=== PATIENT | male | born 1940 | race Caucasian/White ===

== ENCOUNTER 2019-05-17 01:19 | Emergency (ER) | payer MEDICARE, OTHER ==
[~2019-05-17] VITALS: Ht 185 cm; Wt 100.0 kg
[2019-05-17] MEDS ORDERED: LACTATED RINGERS 1,000 ML IV ONE (01:27)
[2019-05-17] MEDS ORDERED: SCOPOLAMINE 1.5 MG (TRANSDERM-SCOP) PATCH TD ONE (01:30)
[2019-05-17] MEDS ORDERED: ONDANSETRON 4 MG/2 ML (SDV) Z0FRAN IVP ONE (01:30)
--- NOTE | 2019-05-17 01:34 | ED General ---
General Chief Complaint: General Problems/Pain Stated Complaint: N/V,DIZZINESS Nursing Triage Note: TO ED ROOM 7 [facility]. STATES HE WAS MOVING HIS CAR EARLIER TONIGHT AND WHEN HE WAS DONE HE VOMITTED AND FELT DIZZY, WEAK, SOA. DENIES CP. STATES THIS HAPPENED A COUPLE OF DAYS AGO WELL. HAS NOT SEEN PCP. Nursing Sepsis Screen: No Definite Risk Source of Information: Patient, EMS History of Present Illness Date Seen by Provider: May 17, 2019 Time Seen by Provider: 01:20 Initial Comments PT ARRIVES VIA EMS FROM HOME, WITH PT C/O SUDDEN ONSET OF NAUSEA/VOMITING AND DIZZINESS AROUND 2300 TONIGHT STATES HE WAS DRIVING/MOVING HIS CAR AND SYMPTOMS BEGAN SHORTLY AFTER THAT HAS VOMITED X 4-5 TIMES NO DIARRHEA NO ABDOMINAL PAIN NO HEADACHE NO VISION CHANGES NO FEVER/SWEATS/CHILLS NO COUGH/CONGESTION OR RECENT ILLNESS NO CHEST PAIN HAS BEEN A LITTLE SHORT OF BREATH WITH THESE SYMPTOMS C/O GENERALIZED WEAKNESS NO PARESTHESIAS OR MOTOR DEFICITS NO SYNCOPE NOTHING WORSENS OR IMPROVES IT. CAN MOVE HEAD WITHOUT ANY PROBLEMS STATES HE IS NOT DIZZY NOW, AND NOT SHORT OF BREATH STATES HE FEELS FINE NOW, AND ALL SYMPTOMS HAVE RESOLVED PT STATES HE HAD THE EXACT SAME SYMPTOMS "2-3 DAYS AGO"--"CAME ON SUDDENLY AND LASTED " A COUPLE OF DAYS" PER PT DID NOT SEEK CARE STATES HE LOST HEARING IN HIS RIGHT EAR FOR A SHORT PERIOD OF TIME, WHEN THAT OCCURRED A COUPLE OF DAYS AGO, BUT HEARING IS FINE NOW AND HAS BEEN FINE SINCE THEN STATES HE FELT FINE ALL DAY TODAY, UNTIL 2300 NO HISTORY OF SIMILAR PT STATES HE HAS HAD AT LEAST 6 BEERS TONIGHT STATES HE DRINKS "EVERY 4 OR 5 DAYS" STATES HE "DOESN'T HAVE ANY MEDICAL PROBLEMS" BUT STATES HE "NEVER GOES TO THE DR" PCP: DR. CORREA--HAS NOT SEEN IN A LONG TIME Allergies and Home Medications Allergies Coded Allergies: No Known Drug Allergies (Unverified , 05/17/19) Patient Home Medication List Home Medication List Reviewed: Yes Review of Systems Review of Systems Constitutional: see HPI; No chills, No diaphoresis; dizziness; No fever, No malaise; weakness EENTM: no symptoms reported; No ear pain, No blurred vision, No nose congestion, No throat pain Respiratory: see HPI; No cough, No orthopnea; short of breath; No wheezing Cardiovascular: no symptoms reported; No chest pain, No edema, No palpitations, No syncope Gastrointestinal: see HPI; No abdominal pain, No diarrhea; nausea, vomiting Genitourinary: no symptoms reported Musculoskeletal: no symptoms reported Skin: no symptoms reported Psychiatric/Neurological: No Symptoms Reported; Denies Headache, Denies Numbness, Denies Paresthesia, Denies Seizure, Denies Tingling, Denies Tremors Hematologic/Lymphatic: No Symptoms Reported Immunological/Allergic: no symptoms reported Past Rsyatty-Faeyzx-Movxfe Hx Patient Social History Alcohol Use: Regular Use (AT LEAST A SIX PACK A COUPLE OF TIMES A WEEK, PER PT ON 05/17/19) Recreational Drug Use: No Smoking Status: Former Smoker (> 2 PPD, QUIT 1987) Type Used: Cigarettes Recent Foreign Travel: No Contact w/Someone Who Travel: No Recent Infectious Disease Expo: No Past Medical History Surgeries: Yes (FACIAL SURGERY; LEFT ANKLE FX/ORIF) Orthopedic Respiratory: No Cardiac: No Neurological: No Genitourinary: No Gastrointestinal: No Musculoskeletal: Yes (LEFT ANKLE FX/ORIF) Endocrine: No HEENT: Yes (FACIAL FRACTURES/REPAIR) Cancer: No Psychosocial: No Integumentary: No Blood Disorders: No Physical Exam Vital Signs Vital Signs - First Documented 05/17/19 05/17/19 01:20 03:00 Pulse 68 Resp 18 B/P (MAP) 125/82 (96) Pulse Ox 96 O2 Delivery Room Air Capillary Refill : Less Than 3 Seconds Height, Weight, BMI Height: '" Weight: lbs. oz. kg; 29.00 BMI Method: General Appearance: No Apparent Distress, WD/WN, Other (SMILING, TALKATIVE, DOES NOT APPEAR TO BE IN ANY DISCOMFORT OR DISTRESS, MOVES WITHOUT DIFFICULTY. + ODOR OF ETOH) HEENT: PERRL/EOMI, Normal ENT Inspection, Pharynx Normal, Other (TM'S OBSCURED BY CERUMEN IMPACTION BILATERALLY) Neck: Full Range of Motion, Normal Inspection, Non Tender, Supple; No Carotid Bruit, No JVD Respiratory: Normal Breath Sounds, No Accessory Muscle Use, No Respiratory Distress Cardiovascular: No Edema, No JVD, No Murmur, Normal Peripheral Pulses, Other (INTERMITTENT BIGEMINY, FREQUENT PVC'S ) Gastrointestinal: Normal Bowel Sounds, No Organomegaly, No Pulsatile Mass, Non Tender, Soft Back: No CVA Tenderness Extremity: Normal Capillary Refill, Normal Inspection, Normal Range of Motion, Non Tender, No Calf Tenderness, No Pedal Edema Neurologic/Psychiatric: Alert, Oriented x3, No Motor/Sensory Deficits, Normal Mood/Affect, 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 II-XII Norm as Tested; No Aphasia Skin: Normal Color, Warm/Dry Progress/Results/Core Measures Suspected Sepsis Recent Fever Within 48 Hours: No Infection Criteria Present: Suspected New Infection New/Unexplained Altered Menta: No Sepsis Screen: No Definite Risk SIRS Temperature: Pulse: 68 Respiratory Rate: 18 Laboratory Tests 05/17/19 01:28: White Blood Count 8.7 Blood Pressure 125 /82 Mean: 96 Laboratory Tests 05/17/19 01:28: Creatinine 1.09, INR Comment 1.0, Platelet Count 218, Total Bilirubin 0.5 Results/Orders Lab Results Laboratory Tests Test 05/17/19 01:28 05/17/19 02:17 Range/Units White Blood Count 8.7 4.3-11.0 10^3/uL Red Blood Count 4.57 4.35-5.85 10^6/uL Hemoglobin 13.9 13.3-17.7 G/DL Hematocrit 41 40-54 % Mean Corpuscular Volume 89 80-99 FL Mean Corpuscular Hemoglobin 30 25-34 PG Mean Corpuscular Hemoglobin Concent 34 32-36 G/DL Red Cell Distribution Width 12.8 10.0-14.5 % Platelet Count 218 130-400 10^3/uL Mean Platelet Volume 9.3 7.4-10.4 FL Neutrophils (%) (Auto) 74 42-75 % Lymphocytes (%) (Auto) 15 12-44 % Monocytes (%) (Auto) 11 0-12 % Eosinophils (%) (Auto) 0 0-10 % Basophils (%) (Auto) 0 0-10 % Neutrophils # (Auto) 6.5 1.8-7.8 X 10^3 Lymphocytes # (Auto) 1.3 1.0-4.0 X 10^3 Monocytes # (Auto) 0.9 0.0-1.0 X 10^3 Eosinophils # (Auto) 0.0 0.0-0.3 10^3/uL Basophils # (Auto) 0.0 0.0-0.1 10^3/uL Prothrombin Time 13.0 12.2-14.7 SEC INR Comment 1.0 0.8-1.4 Activated Partial Thromboplast Time 28 24-35 SEC Sodium Level 134 L 135-145 MMOL/L Potassium Level 3.9 3.6-5.0 MMOL/L Chloride Level 103 98-107 MMOL/L Carbon Dioxide Level 17 L 21-32 MMOL/L Anion Gap 14 5-14 MMOL/L Blood Urea Nitrogen 12 7-18 MG/DL Creatinine 1.09 0.60-1.30 MG/DL Estimat Glomerular Filtration Rate > 60 BUN/Creatinine Ratio 11 Glucose Level 113 H 70-105 MG/DL Calcium Level 8.3 L 8.5-10.1 MG/DL Corrected Calcium 8.5 8.5-10.1 MG/DL Magnesium Level 1.8 1.6-2.4 MG/DL Total Bilirubin 0.5 0.1-1.0 MG/DL Aspartate Amino Transf (AST/SGOT) 22 5-34 U/L Alanine Aminotransferase (ALT/SGPT) 19 0-55 U/L Alkaline Phosphatase 45 40-136 U/L Total Creatine Kinase 65 30-200 U/L Creatine Kinase MB 1.3 <6.6 NG/ML Myoglobin 53.4 10.0-92.0 NG/ML Troponin I < 0.028 <0.028 NG/ML B-Type Natriuretic Peptide 11.2 <100.0 PG/ML Total Protein 6.6 6.4-8.2 GM/DL Albumin 3.8 3.2-4.5 GM/DL Amylase Level 47 25-125 U/L Lipase 26 8-78 U/L TSH Turner Testing 0.74 0.35-4.94 UIU/ML Serum Alcohol 89 H <10 MG/DL Urine Color YELLOW Urine Clarity CLEAR Urine pH 6.5 5-9 Urine Specific [place] 1.015 L 1.016-1.022 Urine Protein NEGATIVE NEGATIVE Urine Glucose (UA) NEGATIVE NEGATIVE Urine Ketones TRACE H NEGATIVE Urine Nitrite NEGATIVE NEGATIVE Urine Bilirubin NEGATIVE NEGATIVE Urine Urobilinogen 0.2 < = 1.0 MG/DL Urine Leukocyte Esterase NEGATIVE NEGATIVE Urine RBC (Auto) NEGATIVE NEGATIVE Urine RBC NONE /HPF Urine WBC NONE /HPF Urine Squamous Epithelial Cells RARE /HPF Urine Crystals NONE /LPF Urine Bacteria NEGATIVE /HPF Urine Casts NONE /LPF Urine Mucus NEGATIVE /LPF Urine Culture Indicated NO Urine Opiates Screen NEGATIVE NEGATIVE Urine Oxycodone Screen NEGATIVE NEGATIVE Urine Methadone Screen NEGATIVE NEGATIVE Urine Propoxyphene Screen NEGATIVE NEGATIVE Urine Barbiturates Screen NEGATIVE NEGATIVE Ur Tricyclic Antidepressants Screen NEGATIVE NEGATIVE Urine Phencyclidine Screen NEGATIVE NEGATIVE Urine Amphetamines Screen NEGATIVE NEGATIVE Urine Methamphetamines Screen NEGATIVE NEGATIVE Urine Benzodiazepines Screen NEGATIVE NEGATIVE Urine Cocaine Screen NEGATIVE NEGATIVE Urine Cannabinoids Screen NEGATIVE NEGATIVE Micro Results Microbiology 05/17/19 Influenza Types A,B Antigen (DOREEN) - Final, Complete My Orders Orders - LUANN WISE DO Ed Iv/Invasive Line Start (05/17/19 01:20) Ekg Tracing (05/17/19 01:20) O2 (05/17/19 01:20) Monitor-Rhythm Ecg Trace Only (05/17/19:20) Amylase (05/17/19:20) Cbc With Automated Diff (05/17/19:20) Comprehensive Metabolic Panel (05/17/19 01:20) Lipase (05/17/19 01:20) Magnesium (05/17/19 01:20) Protime With Inr (05/17/19:20) Partial Thromboplastin Time (05/17/19 01:20) Ua Culture If Indicated (05/17/19 01:20) Blood Culture (05/17/19 01:20) Influenza A And B Antigens (05/17/19 01:20) Troponin I (05/17/19:20) Ondansetron Injection (Zofran Injectio (05/17/19 01:30) Ed Iv/Invasive Line Start (05/17/19 01:27) Lactated Ringers (Lr 1000 Ml Iv Solution (05/17/19 01:27) Alcohol (05/17/19 01:27) BNP (05/17/19 01:27) Creatine Kinase (05/17/19 01:27) Creatine Kinase Mb (05/17/19 01:27) Drug Screen Stat (Urine) (05/17/19 01:27) Myoglobin Serum (05/17/19 01:27) Ct Head Wo-R/O Stroke (05/17/19 01:27) Chest 1 View, Ap/Pa Only (05/17/19 01:27) Scopolamine Patch (Transderm-Scop Patch) (05/17/19 01:30) Thyroid Analyzer (05/17/19 01:45) Ekg Tracing (05/17/19 01:48) Medications Given in ED Current Medications Medications Dose Ordered Sig/Dennis Route Start Time Stop Time Status Last Admin Dose Admin Lactated Ringer's 1,000 ml @ 0 mls/hr Q0M ONCE IV 05/17/19 01:27 05/17/19 01:30 DC 05/17/19 02:35 0 MLS/HR Ondansetron HCl 4 mg ONCE ONCE IVP 05/17/19 01:30 05/17/19 01:31 DC 05/17/19 01:39 4 MG Scopolamine 1.5 mg ONCE ONCE TD 05/17/19 01:30 05/17/19 01:31 DC 05/17/19 01:39 1.5 MG Vital Signs/I&O 05/17/19 05/17/19 01:20 03:00 Pulse 68 68 Resp 18 18 B/P (MAP) 125/82 (96) 119/80 (96) Pulse Ox 96 O2 Delivery Room Air Room Air Capillary Refill : Less Than 3 Seconds Blood Pressure Mean: 96 ECG Initial ECG Impression Date: May 17, 2019 Initial ECG Impression Time: : Initial ECG Rate: 77 Initial ECG Rhythm: Normal Sinus (BIGEMINY) Initial ECG Comparisson: No Previous ECG Available EKG : EKG Time: Rate: 64 Rhythm: Normal Sinus ECG Impression: 1st Degree AV Block Diagnostic Imaging Comments CXR--NO ACUTE PROCESS,. PENDING RADIOLOGIST REVIEW CT HEAD--NO ACUTE PROCESS, PER [facility] VIA FAX AT 0243 Reviewed: Reviewed by Me Departure Impression Primary Impression: INTERMITTENT DIZZINESS Disposition: 01 HOME, SELF-CARE Condition: Improved Departure-Patient Inst. Referrals: LUANN CORREA MD (PCP/Family) Primary Care Physician Patient Instructions: Dizziness, Nonvertigo, (DC), Vertigo (a Type of Dizziness) (DC) Add. Discharge Instructions: LOTS OF FLUIDS NO ALCOHOL SLOW POSITION CHANGES LEAVE SCOPOLAMINE PATCH IN PLACE FOR 3 DAYS NO DRIVING IF YOU ARE DIZZY FOLLOW UP WITH DR. CORREA THIS WEEK FOR FURTHER CARE, RETURN TO ER IF WORSE All discharge instructions reviewed with patient and/or family. Voiced understanding. LUANN WISE DO May 17, 2019 01:34
[2019-05-17 01:46] LABS: BASOPHILS % (AUTO) 0 % (0-10); EOSINOPHILS % (AUTO) 0 % (0-10); HEMATOCRIT 41 % (40-54); HEMOGLOBIN 13.9 G/DL (13.3-17.7); LYMPHOCYTES # (AUTO) 1.3 X 10^3 (1.0-4.0); LYMPHOCYTES % (AUTO) 15 % (12-44); MEAN CORPUSCULAR HEMOGLOBIN 30 PG (25-34); MEAN CORPUSCULAR HGB CONC 34 G/DL (32-36); MEAN CORPUSCULAR VOLUME 89 FL (80-99); MEAN PLATELET VOLUME 9.3 FL (7.4-10.4); MONOCYTES # (AUTO) 0.9 X 10^3 (0.0-1.0); MONOCYTES % (AUTO) 11 % (0-12); NEUTROPHILS # (AUTO) 6.5 X 10^3 (1.8-7.8); NEUTROPHILS % (AUTO) 74 % (42-75); PLATELET COUNT 218 10^3/uL (130-400); RED CELL DISTRIBUTION WIDTH 12.8 % (10.0-14.5); WHITE BLOOD COUNT 8.7 10^3/uL (4.3-11.0)
[2019-05-17 02:08] LABS: ALANINE AMINOTRANSFERASE 19 U/L (0-55); ALBUMIN 3.8 GM/DL (3.2-4.5); ALKALINE PHOSPHATASE 45 U/L (40-136); AMYLASE 47 U/L (25-125); BILIRUBIN,TOTAL 0.5 MG/DL (0.1-1.0); BUN/CREATININE RATIO 11; CALCIUM 8.3 MG/DL (8.5-10.1); CARBON DIOXIDE 17 MMOL/L (21-32); CHLORIDE 103 MMOL/L (98-107); CREATINE KINASE 65 U/L (30-200); CREATININE SERUM 1.09 MG/DL (0.60-1.30); GFR ESTIMATED > 60; GLUCOSE 113 MG/DL (70-105); LIPASE 26 U/L (8-78); MAGNESIUM 1.8 MG/DL (1.6-2.4); POTASSIUM 3.9 MMOL/L (3.6-5.0); SODIUM 134 MMOL/L (135-145); TOTAL PROTEIN 6.6 GM/DL (6.4-8.2)
[2019-05-17 02:16] LABS: CREATINE KINASE MB 1.3 NG/ML (<6.6)
[2019-05-17 02:25] LABS: BILIRUBIN,URINE NEGATIVE (NEGATIVE); CLARITY,URINE CLEAR; COLOR,URINE YELLOW; GLUCOSE, URINE (UA) NEGATIVE (NEGATIVE); KETONES,URINE TRACE (NEGATIVE); LEUKOCYTE ESTERASE ,URINE NEGATIVE (NEGATIVE); NITRITE,URINE NEGATIVE (NEGATIVE); PH,URINE 6.5 (5-9); PROTEIN,URINE NEGATIVE (NEGATIVE)
[2019-05-17 02:46] LABS: AMPHETAMINE SCREEN, URINE NEGATIVE (NEGATIVE); BACTERIA,URINE NEGATIVE /HPF; BARBITURATE SCREEN URINE NEGATIVE (NEGATIVE); BENZODIAZEPINES SCREEN URINE NEGATIVE (NEGATIVE); CANNABINOID SCREEN, URINE NEGATIVE (NEGATIVE); COCAINE SCREEN URINE NEGATIVE (NEGATIVE); METHADONE STAT NEGATIVE (NEGATIVE); METHAMPHETAMINE SCREEN URINE S NEGATIVE (NEGATIVE); OPIATE SCREEN URINE NEGATIVE (NEGATIVE); OXYCODONE STAT NEGATIVE (NEGATIVE); PROPOXYPHENE STAT NEGATIVE (NEGATIVE); SQUAMOUS EPITHELIAL CELL,UR RARE /HPF; TRICYCLIC ANTIDEPRESSANTS SCRE NEGATIVE (NEGATIVE)
[2019-05-17 03:00] VITALS: BP 119/80
--- NOTE | 2019-05-17 07:26 | Diagnostic Imaging Report ---
INDICATION: Dizziness, weakness and shortness of breath. FINDINGS: The heart size, mediastinal configuration, and pulmonary vascularity are within normal limits. There is no pleural effusion, pneumothorax, or pneumonia. The osseous structures are unremarkable. IMPRESSION: No acute cardiopulmonary abnormality. Dictated by: Dictated on workstation # [id number]
--- NOTE | 2019-05-17 07:29 | Diagnostic Imaging Report ---
PROCEDURE: CT head wo r/o stroke. TECHNIQUE: Multiple contiguous axial images were obtained through the brain without the use of intravenous contrast. Auto Exposure Controls were utilized during the CT exam to meet ALARA standards for radiation dose reduction. INDICATION: Shortness of breath, chest pain, dizziness and vomiting. FINDINGS: The ventricles and sulci are within normal limits. There is no hydrocephalus or cerebral edema. There is no midline shift or mass effect. There is no intracranial mass, hemorrhage, or extra-axial fluid collection. The visualized paranasal sinuses and mastoid air cells are clear. There are no regional areas of decreased attenuation appreciated to suggest an acute CVA. IMPRESSION: No acute intracranial abnormality. Dictated by: Dictated on workstation # [id number]
== END 2019-05-17 03:06 | disposition home or self-care (01) ==
LOC: EDUNIT# 01:19 → ER 01:21
DX: R42 Dizziness and giddiness (principal); Z87.891 Personal history of nicotine dependence
CPT/HCPCS: 36415; 70450; 71045; 80053; 80306; 80320; 81000; 82150; 82550; 82553; 83690; 83735; 83874; 83880; 84443; 84484; 85025; 85610; 85730; 87040; 87804; 93005; 93041